=== PATIENT | female | born 1970 | race American Indian/Alaskan Native ===

== ENCOUNTER 2019-01-09 23:11 | Emergency (ER) | payer SELFPAY ==
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
[2019-01-10 01:00] VITALS: BP 120/82
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
== END 2019-01-10 01:10 | disposition home or self-care (01) ==
LOC: ED 23:11
DX: S06.0X9A Concussion with loss of consciousness of unspecified duration, initial encounter (principal); J45.909 Unspecified asthma, uncomplicated; Y08.89XA Assault by other specified means, initial encounter; Y93.89 Activity, other specified; Y92.89 Other specified places as the place of occurrence of the external cause; Y99.8 Other external cause status
CPT/HCPCS: 70450